=== PATIENT | male | born 1985 | race Caucasian/White ===

== ENCOUNTER 2024-11-04 18:50 | Emergency (ER) | payer SELFPAY, OTHER ==
[2024-11-04] MEDS ORDERED: Acetaminophen 500 MG TAB ONE (21:45)
[2024-11-04] MEDS ORDERED: Ketorolac Tromethamine 30 MG (1 mL) VIAL ONE (23:36)
== END 2024-11-04 23:50 | disposition home or self-care (01) ==
LOC: CSHERS 18:50
DX: S39.012A Strain of muscle, fascia and tendon of lower back, initial encounter (principal); S40.012A Contusion of left shoulder, initial encounter; I10 Essential (primary) hypertension; Z53.21 Procedure and treatment not carried out due to patient leaving prior to being seen by health care provider; V44.5XXA Car driver injured in collision with heavy transport vehicle or bus in traffic accident, initial encounter; Y93.89 Activity, other specified; Y92.410 Unspecified street and highway as the place of occurrence of the external cause
CPT/HCPCS: 72131; J1885